=== PATIENT | female | born 1975 | race Two or more races ===

== ENCOUNTER → 2019-03-31 | Outpatient (CLI) | payer OTHER | END | disposition home or self-care (01) | LOC: NUCLEAR 13:44 | DX: C73 Malignant neoplasm of thyroid gland (principal); E89.0 Postprocedural hypothyroidism | CPT/HCPCS: 79005; A9517 ==

== ENCOUNTER 2019-04-05 11:54 | Outpatient (CLI) | payer OTHER | END 2019-04-05 11:59 | disposition home or self-care (01) | LOC: NUCLEAR 11:54 | DX: C73 Malignant neoplasm of thyroid gland (principal) | CPT/HCPCS: 79005; A9517 ==

== ENCOUNTER 2020-07-22 13:17 | Outpatient (CLI) | payer OTHER | END 2020-07-22 13:19 | disposition home or self-care (01) | LOC: NUCLEAR 13:17 | PROVIDERS: ATTEND Internal Medicine Sports Medicine | DX: C73 Malignant neoplasm of thyroid gland (principal); E89.0 Postprocedural hypothyroidism | CPT/HCPCS: 78018; 78020; A9528 ==